=== PATIENT | male | born 1985 | race Caucasian/White ===

== ENCOUNTER 2018-01-19 08:59 | Day surgery (SDC) | payer OTHER ==
[~2018-01-19] VITALS: Ht 172.7 cm; Wt 124.7 kg
[~2018-01-19 08:59] MED LIST: Ativan1 MG PO; BACL20 PO; CYCL10 PO; FINA5 PO; FLUO10 PO; GABA300 PO; HYDACE10B PO; IBUP800 PO; LATUDA20 MG PO; LITH300C PO; OMEP20ER PO; OMEPRAZOLE MAGN20 MG PO; Prinivil10 MG PO; QUET100 PO; QUET200 PO; TAMS.4ER PO; Ventolin/Prove6.7 GM INH; WARF6 PO
== END 2018-01-19 23:05 | disposition home or self-care (01) ==
LOC: ORSCMMR 08:59
PROVIDERS: Internal Medicine Gastroenterology
PROC: 0DB88ZX Excision of Small Intestine, Via Natural or Artificial Opening Endoscopic, Diagnostic (ICD-10-PCS; principal; 2018-01-19 10:00)
PROC: 0DB68ZX Excision of Stomach, Via Natural or Artificial Opening Endoscopic, Diagnostic (ICD-10-PCS; principal; 2018-01-19 10:00)
PROC: 0DB48ZX Excision of Esophagogastric Junction, Via Natural or Artificial Opening Endoscopic, Diagnostic (ICD-10-PCS; principal; 2018-01-19 10:00)
DX: K21.0 Gastro-esophageal reflux disease with esophagitis (principal); K29.70 Gastritis, unspecified, without bleeding; I10 Essential (primary) hypertension; E66.01 Morbid (severe) obesity due to excess calories; Z68.41 Body mass index [BMI] 40.0-44.9, adult; Z86.718 Personal history of other venous thrombosis and embolism; Z87.891 Personal history of nicotine dependence; Z79.899 Other long term (current) drug therapy
CPT/HCPCS: 88305; 88312; 88342; J2250; J2310; J3010; J7120

== ENCOUNTER 2018-03-02 10:59 | Day surgery (SDC) | payer OTHER ==
[~2018-03-02] VITALS: Ht 172.7 cm; Wt 122.9 kg
[2018-03-02] MEDS ORDERED: Lisinopril2.5 MG PO (11:26)
[2018-03-02] MEDS ORDERED: FLUO10 PO (11:27)
[2018-03-02] MEDS ORDERED: OXYB5 (11:28)
[2018-03-02] MEDS ORDERED: TRAM50 PO (11:28)
[2018-03-02] MEDS ORDERED: IBUP800 PO (11:29)
== END 2018-03-02 13:19 | disposition home or self-care (01) ==
LOC: ORSCSDS 10:59
PROVIDERS: Orthopaedic Surgery
PROC: 01N50ZZ Release Median Nerve, Open Approach (ICD-10-PCS; principal; 2018-03-02 12:20)
DX: G56.02 Carpal tunnel syndrome, left upper limb (principal); I10 Essential (primary) hypertension; K21.9 Gastro-esophageal reflux disease without esophagitis; E66.01 Morbid (severe) obesity due to excess calories; Z68.41 Body mass index [BMI] 40.0-44.9, adult; F33.9 Major depressive disorder, recurrent, unspecified; Z79.899 Other long term (current) drug therapy; F17.210 Nicotine dependence, cigarettes, uncomplicated
CPT/HCPCS: J2250; J7120

== ENCOUNTER 2018-04-20 10:48 | Day surgery (SDC) | payer OTHER ==
[~2018-04-20] VITALS: Ht 172.7 cm; Wt 120.8 kg
[~2018-04-20 10:48] MED LIST changes: +Lisinopril2.5 MG PO; +OXYB5; +TRAM50 PO
== END 2018-04-20 12:50 | disposition home or self-care (01) ==
LOC: ORSCSDS 10:48
PROVIDERS: Orthopaedic Surgery
PROC: 01N50ZZ Release Median Nerve, Open Approach (ICD-10-PCS; principal; 2018-04-20 12:00)
DX: G56.01 Carpal tunnel syndrome, right upper limb (principal); I10 Essential (primary) hypertension; F41.8 Other specified anxiety disorders; Z79.899 Other long term (current) drug therapy; F17.210 Nicotine dependence, cigarettes, uncomplicated
CPT/HCPCS: J2250; J3010

== ENCOUNTER → 2020-05-22 | Outpatient (CLI) | payer OTHER ==
[2020-05-22 13:17] LABS: Microalb/Creat Ratio UR, Rand Unable to Calculate mg/g (0.000-30.000); Microalbumin, Random Urine <5.000 mg/L (0.000-20.000)
== END | disposition home or self-care (01) ==
LOC: LAB 11:41 → LAB SHORT 11:41
PROVIDERS: Nurse Practitioner Family
DX: E11.9 Type 2 diabetes mellitus without complications (principal)
CPT/HCPCS: 82043; 82570

== ENCOUNTER 2024-12-10 18:51 | Inpatient (IN) | payer OTHER ==
[~2024-12-10] VITALS: Ht 175.3 cm; Wt 116.9 kg
[2024-12-10] MEDS ORDERED: Ondansetron HCl 2 MG / ML 2ML Vial IV ONE ×2 (19:05→21:00)
[2024-12-10 19:20] LABS: BASOPHILS ABSOLUTE AUTO 0.04 K/mm3 (0.00-0.23); BASOPHILS PERCENT AUTO 0 % (0-2); EOSINOPHILS ABSOLUTE AUTO 0.16 K/mm3 (0.00-0.68); EOSINOPHILS PERCENT AUTO 2 % (0-6); Hematocrit 46.5 % (37.0-53.0); Hemoglobin 15.6 g/dL (13.5-17.5); IMMATURE GRAN ABSOLUTE AUTO 0.05 K/mm3 (0.00-0.10); IMMATURE GRAN PERCENT AUTO 1 % (0-1); LYMPHOCYTES ABSOLUTE AUTO 0.94 K/mm3 (0.84-5.20); LYMPHOCYTES PERCENT AUTO 9 % (21-46); MONOCYTES ABSOLUTE AUTO 0.46 K/mm3 (0.16-1.47); MONOCYTES PERCENT AUTO 4 % (4-13); Mean Corpuscular HGB 30.5 pg (26.0-34.0); Mean Corpuscular HGB Conc 33.5 g/dL (31.5-36.5); Mean Corpuscular Volume 91 fL (80-100); Mean Platelet Volume 9.8 fL (9.1-12.4); NEUTROPHILS ABSOLUTE AUTO 9.04 K/mm3 (1.96-9.15); NEUTROPHILS PERCENT AUTO 85 % (41-73); Platelet Count 173 K/mm3 (150-400); RDW Coefficient Variation 12.6 % (11.7-14.2); RDW Standard Deviation 42.4 fL (35.1-46.3); Red Blood Cell Count 5.12 M/mm3 (4.30-5.90); White Blood Cell Count 10.69 K/mm3 (4.00-11.30)
[2024-12-10 19:57] LABS: Albumin/Globulin Ratio 1.1 (0.8-1.8); Bilirubin, Total 2.9 mg/dL (0.1-1.0); Bun/Creatinine Ratio 16.8 (12.0-20.0); Calcium, Blood 9.3 mg/dL (8.5-10.1); Creatinine, Blood 0.9 mg/dL (0.60-1.20); Globulin, Blood 3.7 g/dL (2.2-4.0); Potassium, Blood 3.9 mmol/L (3.5-5.5); Total Protein, Blood 7.7 g/dL (6.4-8.2)
[2024-12-10] MEDS ORDERED: Ketorolac Tromethamine 30mg Vial IV ONE (20:35)
[2024-12-10] MEDS ORDERED: FentaNYL Citrate 50 MCG/ML 2 ML Injection IV ONE (20:40)
[2024-12-10] MEDS ORDERED: NS 1,000 ML IV SCH (20:40)
[2024-12-10] MEDS ORDERED: Piperacillin/Tazobactam Sod 4.5 GM in NS 100 ML IV ONE (21:05)
[2024-12-10 21:06] LABS: Source, Urine Clean Catch
[2024-12-10 21:09] LABS: Bilirubin, Urine Neg (Neg); Blood, Urine 1+ (Neg); Color, Urine Yellow (P-Yellow); Glucose Qualitative, Urine 4+ (Neg); Ketones, Urine 3+ (Neg); Leukocyte Esterase, Urine Neg (Neg); Nitrite, Urine Neg (Neg); Protein, Urine 1+ (Neg); Specific Gravity, Urine 1.015 (1.003-1.022); Urobilinogen, Urine 1+ (Normal)
[2024-12-10 21:27] LABS: Appearance, Urine Hazy (Clear)
[2024-12-10 21:28] LABS: Bacteria Mod /hpf; Mucus Light (0-Heavy); Red Blood Cells, Urine 0-2 /hpf (0-2); Squamous Epithelial Cells Rare /hpf (Few)
[2024-12-11] MEDS ORDERED: Metoclopramide HCl 5MG / ML 2ML Vial IV PRN (00:05)
[2024-12-11] MEDS ORDERED: FLU VACC TS2024-25(6MOS UP)/PF 45 MCG/0.5 ML SYRINGE IM ONE (00:05)
[2024-12-11] MEDS ORDERED: Lactated Ringer's 1,000 ML IV SCH ×2 (00:05→09:55)
[2024-12-11] MEDS ORDERED: HYDROmorphone HCl/Pf 1MG SYR IV PRN (02:00)
[2024-12-11] MEDS ORDERED: FentaNYL Citrate 50 MCG/ML 2 ML Injection IV PRN (02:00)
[2024-12-11 05:24] LABS: BASOPHILS ABSOLUTE AUTO 0.03 K/mm3 (0.00-0.23); BASOPHILS PERCENT AUTO 0 % (0-2); EOSINOPHILS ABSOLUTE AUTO 0.01 K/mm3 (0.00-0.68); EOSINOPHILS PERCENT AUTO 0 % (0-6); Hemoglobin 12.6 g/dL (13.5-17.5); IMMATURE GRAN ABSOLUTE AUTO 0.04 K/mm3 (0.00-0.10); IMMATURE GRAN PERCENT AUTO 0 % (0-1); LYMPHOCYTES ABSOLUTE AUTO 0.97 K/mm3 (0.84-5.20); LYMPHOCYTES PERCENT AUTO 9 % (21-46); MONOCYTES ABSOLUTE AUTO 1.14 K/mm3 (0.16-1.47); MONOCYTES PERCENT AUTO 11 % (4-13); Mean Corpuscular HGB 30.4 pg (26.0-34.0); Mean Corpuscular HGB Conc 33.2 g/dL (31.5-36.5); Mean Corpuscular Volume 92 fL (80-100); Mean Platelet Volume 9.7 fL (9.1-12.4); NEUTROPHILS ABSOLUTE AUTO 8.49 K/mm3 (1.96-9.15); NEUTROPHILS PERCENT AUTO 79 % (41-73); Platelet Count 123 K/mm3 (150-400); RDW Coefficient Variation 12.8 % (11.7-14.2); RDW Standard Deviation 43.4 fL (35.1-46.3); Red Blood Cell Count 4.15 M/mm3 (4.30-5.90); White Blood Cell Count 10.68 K/mm3 (4.00-11.30)
[2024-12-11 06:21] LABS: Albumin, Blood 2.8 g/dL (3.4-5.0); Albumin/Globulin Ratio 0.9 (0.8-1.8); Bilirubin, Total 2.1 mg/dL (0.1-1.0); Bun/Creatinine Ratio 16.3 (12.0-20.0); Calcium, Blood 8.3 mg/dL (8.5-10.1); Creatinine, Blood 0.86 mg/dL (0.60-1.20); Globulin, Blood 3.1 g/dL (2.2-4.0); Total Protein, Blood 5.9 g/dL (6.4-8.2)
[2024-12-11] MEDS ORDERED: Enoxaparin 40 MG/0.4 ML SYR SC SCH (09:00)
[2024-12-11 09:46] VITALS: BP 128/75
--- NOTE | 2024-12-11 11:18 | NUR ---
ADMISSION NOTE PATIENT A/OX4, ABLE TO MAKE NEEDS KNOWN. PLEASANT AND COOPERATIVE WITH CARE. INDEPENDENT IN ROOM. IV FLUIDS RUNNING PER JAN. PATIENT COMPLAINING OF UPPER ABDOMINAL PAIN, MEDICATED PER MAR UPON ARRIVAL TO ROOM 212. GIRLFRIEND AT BEDSIDE. PLAN TO HAVE MRI THIS AFTERNOON. VITAL SIGNS STABLE. Q6H BLOOD GLUCOSE CHECKS, REMAINS NPO AT THIS TIME. MOUTH CARE PROVIDED AND MOUTH SWABS PROVIDED TO PATIENT FOR COMFORT. NO OTHER CONCERNS AT THIS TIME.
[2024-12-11] MEDS ORDERED: Insulin Human Lispro 100 Units/ML 3ML Syringe SC SCH (12:00)
[2024-12-11] MEDS ORDERED: OMEP20ER PO (12:39)
[2024-12-11] MEDS ORDERED: VENL75ER PO (12:41)
[2024-12-11] MEDS ORDERED: STEGLATRO15 MG PO (12:43)
[2024-12-11] MEDS ORDERED: Inderal 20 mg T20 MG PO (12:43)
[2024-12-11] MEDS ORDERED: PRAV20 PO (12:44)
[2024-12-11] MEDS ORDERED: BUSP10 PO (12:44)
[2024-12-11] MEDS ORDERED: LAMO100 PO (12:45)
[2024-12-11] MEDS ORDERED: PIOG30 PO (12:45)
[2024-12-11] MEDS ORDERED: RYBELSUS14 MG PO (12:46)
[2024-12-11] MEDS ORDERED: LYBALVI 15-101 EACH PO (12:48)
[2024-12-11] MEDS ORDERED: VENL150ER PO (12:48)
[2024-12-11] MEDS ORDERED: Prednisone10 MG PO (12:50)
[2024-12-11] MEDS ORDERED: MYCO250 PO (12:51)
[2024-12-11] MEDS ORDERED: Omeprazole 20 MG CapCR PO SCH (14:00)
[2024-12-11] MEDS ORDERED: Cyclobenzaprine HCl 10 MG Tab PO PRN (14:00)
[2024-12-11] MEDS ORDERED: INSULANI SC (14:30)
[2024-12-11 15:24] VITALS: BP 137/82
--- NOTE | 2024-12-11 18:27 | NUR ---
SHIFT SUMMARY PATIENT A/OX4, ABLE TO MAKE NEEDS KNOWN. PLEASANT AND COOPERATIVE WITH CARE. FAMILY AT BEDSIDE THROUGHOUT THE SHIFT. IV FLUIDS RUNNING PER JAN. PATIENT COMPLAINING OF UPPER ABDOMINAL PAIN, PRN FENTANYL AND DILAUDID ADMINISTERED PER JAN. PATIENT DENIES NAUSEA. CLEAR LIQUID DIET ORDERED THIS EVENING, PATIENT TOLERATING WELL. TELEMETRY IN PLACE, NO EVENTS NOTED. MRCP COMPLETED THIS AFTERNOON. PATIENT INDEPENDENT IN ROOM. 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 NO OTHER CONCERNS AT THIS TIME.
[2024-12-11 19:23] VITALS: BP 166/94
[2024-12-11] MEDS ORDERED: BusPIRone HCl 10 MG Tab PO SCH (21:00)
[2024-12-12] VITALS (16 sets, daily range): BP systolic 99–138; BP diastolic 51–81
--- NOTE | 2024-12-12 03:50 | NUR ---
SHIFT SUMMARY NO ACUTE EVENTS DURING THIS SHIFT. PT DENIES N/V AND DENIES ANY PAIN. PT REPORTS VOIDING WELL, URINE COLOR YELLOW NOW. PT'S GIRLFRIEND BY THE BEDSIDE T/O THE NIGHT. PT AMBULATES INDEPENDENTLY W/I THE HOSPITAL ROOM. NO ACUTE DISTRESS/EVENTS DURING THIS SHIFT.TELE:NSR @12. BED AT THE LOWEST POSITION, CALL LIGHT W/I REACH. PT IS A/O X4, VERY PLEASANT, AND ABLE TO MAKE HIS NEEDS KNOWN.
[2024-12-12 06:11] LABS: BASOPHILS ABSOLUTE AUTO 0.03 K/mm3 (0.00-0.23); BASOPHILS PERCENT AUTO 0 % (0-2); EOSINOPHILS PERCENT AUTO 5 % (0-6); Hematocrit 40.3 % (37.0-53.0); Hemoglobin 13.3 g/dL (13.5-17.5); IMMATURE GRAN ABSOLUTE AUTO 0.05 K/mm3 (0.00-0.10); IMMATURE GRAN PERCENT AUTO 1 % (0-1); LYMPHOCYTES ABSOLUTE AUTO 1.33 K/mm3 (0.84-5.20); LYMPHOCYTES PERCENT AUTO 17 % (21-46); MONOCYTES ABSOLUTE AUTO 0.84 K/mm3 (0.16-1.47); MONOCYTES PERCENT AUTO 10 % (4-13); Mean Corpuscular HGB 30.2 pg (26.0-34.0); Mean Corpuscular Volume 92 fL (80-100); Mean Platelet Volume 9.6 fL (9.1-12.4); NEUTROPHILS ABSOLUTE AUTO 5.42 K/mm3 (1.96-9.15); NEUTROPHILS PERCENT AUTO 67 % (41-73); Platelet Count 136 K/mm3 (150-400); RDW Coefficient Variation 12.9 % (11.7-14.2); RDW Standard Deviation 43.4 fL (35.1-46.3); White Blood Cell Count 8.07 K/mm3 (4.00-11.30)
[2024-12-12 06:33] LABS: Albumin, Blood 2.9 g/dL (3.4-5.0); Albumin/Globulin Ratio 0.8 (0.8-1.8); Bilirubin, Total 0.9 mg/dL (0.1-1.0); Calcium, Blood 8.7 mg/dL (8.5-10.1); Creatinine, Blood 0.58 mg/dL (0.60-1.20); Globulin, Blood 3.6 g/dL (2.2-4.0); Potassium, Blood 3.9 mmol/L (3.5-5.5); Total Protein, Blood 6.5 g/dL (6.4-8.2)
[2024-12-12] MEDS ORDERED: Insulin Human Lispro 100 Units/ML 3ML Syringe SC SCH (07:30)
[2024-12-12] MEDS ORDERED: OLANZAPINE PO SCH (09:00)
[2024-12-12] MEDS ORDERED: Venlafaxine HCl 75 MG CapCR PO SCH (09:00)
[2024-12-12] MEDS ORDERED: Lisinopril 10 MG Tab PO SCH (09:00)
[2024-12-12] MEDS ORDERED: SAMIDORPHAN PO SCH (09:00)
[2024-12-12] MEDS ORDERED: Propranolol HCL 20 MG TAB PO SCH (09:00)
[2024-12-12] MEDS ORDERED: LamoTRIgine 100 MG Tab PO SCH (09:00)
[2024-12-12] MEDS ORDERED: Indocyanine Green 25 MG Vial IV ONE (10:25)
[2024-12-12] MEDS ORDERED: Lactated Ringer's 1,000 ML IV SCH (11:50)
[2024-12-12] MEDS ORDERED: Bupivacaine 0.5% HCl 5 MG/ML 30MLVIAL ONE (12:00)
--- NOTE | 2024-12-12 12:08 | NUR ---
PT TO DAY SURGERY [id number]
--- NOTE | 2024-12-12 12:27 | NUR ---
History, Chart, Medications and Allergies reviewed before start of procedure. Lungs clear T/O to Auscultation. Patient confirms NPO status and agrees with scheduled surgery. Pre-Op teaching done. Pt verbalizes understanding.
[2024-12-12] MEDS ORDERED: Midazolam HCl 1MG / ML 2ML Vial ONE (12:56)
[2024-12-12] MEDS ORDERED: FentaNYL Citrate 50 MCG/ML 2 ML Injection ONE (12:56)
[2024-12-12] MEDS ORDERED: propofoL 20 ML IV ONE (12:59)
[2024-12-12] MEDS ORDERED: Rocuronium Bromide 10 MG/ML 5ML Injection IV ONE (12:59)
[2024-12-12] MEDS ORDERED: Ondansetron HCl 2 MG / ML 2ML Vial ONE (13:06)
[2024-12-12] MEDS ORDERED: Dexamethasone Sod Phos 10 MG/ML 1ML VIAL ONE (13:06)
[2024-12-12] MEDS ORDERED: FentaNYL Citrate 50 MCG/ML 2 ML Injection IV PRN ×2 (13:25→13:30)
[2024-12-12] MEDS ORDERED: Albuterol 2.5 MG/3 ML VIAL INH PRN (13:25)
[2024-12-12] MEDS ORDERED: Atropine Sulfate 0.1 MG/ML 10ML SYR IV PRN (13:25)
[2024-12-12] MEDS ORDERED: HYDROmorphone HCl/Pf 1MG SYR IV PRN ×3 (13:25→14:50)
[2024-12-12] MEDS ORDERED: Labetalol HCL 5 MG/ML 4ML Injection (Single Dose) IV PRN (13:30)
[2024-12-12] MEDS ORDERED: Ondansetron HCl 2 MG / ML 2ML Vial IV PRN (13:30)
[2024-12-12] MEDS ORDERED: HYDROmorphone HCl/Pf 1MG SYR ONE (14:01)
[2024-12-12] MEDS ORDERED: Sugammadex Sodium 200 MG/2ML SDV (100 MG/ML) ONE (14:34)
[2024-12-12] MEDS ORDERED: OxyCODONE HCL 5 MG TAB PO PRN (14:55)
--- NOTE | 2024-12-12 18:47 | NUR ---
PT RETURNED FROM DAY SURG. WAS ON 4L O2. NOW R/A AND VSS. PT AMBULATED SELF SBA TO BATHROOM. VOID. DENIES DIZZINESS, WEAKNESS. AT BEDSIDE. STATES PAIN DOWN FROM 4 THIS AM TO 2 NOW. NO PAIN WITH EATING OR AMBULATING. 4 LAP SITES CDI. GLUED, CLEAN. DR VÁZQUEZ ATTEMPTED TO D.C THIS GIOVANNY, NOT ABLE TO CONNECT WITH SURGEON. WILL EXPECT TOMORROW. BED IN LOW POSITIOON,CALL LITE IN REACH, CALLS APPROP
[2024-12-12] MEDS ORDERED: HYDR1TAB94 PO (20:10)
== END 2024-12-12 21:02 | disposition home or self-care (01) | DRG 419 ==
LOC: ER 18:51 → MEDS 22:15 → ERHOLD 22:15 → MEDS 12-11 09:31
PROVIDERS: Physician Assistant; Student in an Organized Health Care Education/Training Program; Surgery; ADMIT Internal Medicine
PROC: 8E0W4CZ Robotic Assisted Procedure of Trunk Region, Percutaneous Endoscopic Approach (ICD-10-PCS; principal; 2024-12-12 12:00)
PROC: 0FT44ZZ Resection of Gallbladder, Percutaneous Endoscopic Approach (ICD-10-PCS; principal; 2024-12-12 12:00)
DX: K85.10 Biliary acute pancreatitis without necrosis or infection (principal); H35.30 Unspecified macular degeneration; K21.9 Gastro-esophageal reflux disease without esophagitis; Z66 Do not resuscitate; E11.9 Type 2 diabetes mellitus without complications; I10 Essential (primary) hypertension; K76.0 Fatty (change of) liver, not elsewhere classified; F31.9 Bipolar disorder, unspecified; Z79.811 Long term (current) use of aromatase inhibitors; Z79.899 Other long term (current) drug therapy; Z79.891 Long term (current) use of opiate analgesic; Z98.890 Other specified postprocedural states; Z87.891 Personal history of nicotine dependence; Z68.37 Body mass index [BMI] 37.0-37.9, adult; Z79.1 Long term (current) use of non-steroidal anti-inflammatories (NSAID); Z28.29 Immunization not carried out because of patient decision for other reason
CPT/HCPCS: 36415; 74177; 74181; 76705; 80053; 81001; 82947; 83605; 83690; 85025; 87086; 93005; 93010; 96365-59; 96375; 96376; 99285-25; A9270; J1100; J1171; J1650; J1885; J2250; J2405; J2543; J2704; J3010; J7030; J7120; Q9967

== ENCOUNTER → 2024-12-26 | Outpatient (CLI) | payer OTHER ==
[~2024-12-26] MED LIST changes: +BUSP10 PO; +HYDR1TAB94 PO; +INSULANI SC; +Inderal 20 mg T20 MG PO; +LAMO100 PO; +LYBALVI 15-101 EACH PO; +MYCO250 PO; +PIOG30 PO; +PRAV20 PO; +Prednisone10 MG PO; +RYBELSUS14 MG PO; +STEGLATRO15 MG PO; +VENL150ER PO; +VENL75ER PO
== END | disposition home or self-care (01) ==
LOC: LAB SHORT 15:07 → LAB 15:07
DX: R22.9 Localized swelling, mass and lump, unspecified (principal); T81.42XA Infection following a procedure, deep incisional surgical site, initial encounter
CPT/HCPCS: 87070; 87075; 87205

== ENCOUNTER 2025-06-16 19:49 | Emergency (ER) | payer OTHER ==
[~2025-06-16] VITALS: Ht 175.3 cm; Wt 109.3 kg
[2025-06-16 20:20] LABS: pH Blood Venous 7.34 (7.34-7.37)
[2025-06-16 20:42] LABS: BASOPHILS ABSOLUTE AUTO 0.04 K/mm3 (0.00-0.23); BASOPHILS PERCENT AUTO 0 % (0-2); EOSINOPHILS ABSOLUTE AUTO 0.00 K/mm3 (0.00-0.68); EOSINOPHILS PERCENT AUTO 0 % (0-6); Hematocrit 44.7 % (37.0-53.0); Hemoglobin 14.9 g/dL (13.5-17.5); IMMATURE GRAN ABSOLUTE AUTO 0.15 K/mm3 (0.00-0.10); IMMATURE GRAN PERCENT AUTO 1 % (0-1); LYMPHOCYTES ABSOLUTE AUTO 1.20 K/mm3 (0.84-5.20); LYMPHOCYTES PERCENT AUTO 6 % (21-46); MONOCYTES ABSOLUTE AUTO 1.31 K/mm3 (0.16-1.47); MONOCYTES PERCENT AUTO 7 % (4-13); Mean Corpuscular HGB Conc 33.3 g/dL (31.5-36.5); Mean Corpuscular Volume 89 fL (80-100); NEUTROPHILS ABSOLUTE AUTO 15.98 K/mm3 (1.96-9.15); NEUTROPHILS PERCENT AUTO 86 % (41-73); NRBC ABSOLUTE 0.00 K/mm3 (0.00-0.02); NRBC Auto 0.0 /100 WBC (0.0-0.2); Platelet Count 241 K/mm3 (150-400); RDW Coefficient Variation 13.2 % (11.7-14.2); RDW Standard Deviation 43.0 fL (35.1-46.3)
[2025-06-16 20:49] LABS: Alanine Aminotransfer (ALT/SGP 52.0 U/L (12-78); Albumin, Blood 4.2 g/dL (3.4-5.0); Albumin/Globulin Ratio 1.2 (0.8-1.8); Anion Gap 15.0 mmol/L (3-11); Aspartate Aminotrans (AST/SGOT 18.0 U/L (12-37); Bilirubin, Total 0.2 mg/dL (0.1-1.0); Blood Urea Nitrogen 13.0 mg/dL (8-24); CO2, Blood 20.0 mmol/L (21-32); Calcium, Blood 8.9 mg/dL (8.5-10.1); Chloride, Blood 99.0 mmol/L (98-108); Creatinine, Blood 0.76 mg/dL (0.60-1.20); Globulin, Blood 3.6 g/dL (2.2-4.0); Glucose, Blood 592.0 mg/dL (70-99); Potassium, Blood 3.1 mmol/L (3.5-5.5); Sodium, Blood 131.0 mmol/L (136-145); Total Protein, Blood 7.8 g/dL (6.4-8.2)
[2025-06-16 21:43] LABS: Source, Urine Clean Catch
[2025-06-16 21:52] LABS: Bilirubin, Urine Neg (Neg); Glucose Qualitative, Urine 4+ (Neg); Ketones, Urine Neg (Neg); Leukocyte Esterase, Urine Neg (Neg); Protein, Urine Neg (Neg); Specific Gravity, Urine 1.010 (1.003-1.022); Urobilinogen, Urine NORM (Normal)
[2025-06-16 21:58] LABS: Color, Urine Pale Yellow (P-Yellow)
[2025-06-17 00:17] VITALS: BP 120/68
== END 2025-06-17 00:39 | disposition home or self-care (01) ==
LOC: ER 19:49
PROVIDERS: Student in an Organized Health Care Education/Training Program
DX: E11.65 Type 2 diabetes mellitus with hyperglycemia (principal); F19.90 Other psychoactive substance use, unspecified, uncomplicated; M54.2 Cervicalgia; F17.200 Nicotine dependence, unspecified, uncomplicated; Z79.899 Other long term (current) drug therapy; Z88.8 Allergy status to other drugs, medicaments and biological substances
CPT/HCPCS: 80053; 81003; 82010; 82803; 82947; 85025; 96360; 99284-25; J7120